=== PATIENT | female | born 1950 | race African-American/Black ===

== ENCOUNTER 2024-10-08 17:10 | Emergency (ER) | payer MEDICARE, OTHER ==
[2024-10-08] MEDS ORDERED: Cyclobenzaprine 10 MG TAB ONE (19:02)
== END 2024-10-08 20:17 | disposition home or self-care (01) ==
LOC: ERS 17:10
DX: M54.50 Low back pain, unspecified (principal); M25.551 Pain in right hip; M54.2 Cervicalgia; E11.9 Type 2 diabetes mellitus without complications; I10 Essential (primary) hypertension; V89.2XXA Person injured in unspecified motor-vehicle accident, traffic, initial encounter
CPT/HCPCS: 72040; 72100; 99284